=== PATIENT | male | born 1940 | race Caucasian/White ===

== ENCOUNTER 2021-10-10 06:41 | Day surgery (SDC) | payer OTHER, BC ==
[2021-10-03 11:19] VITALS: BMI 31.0
[~2021-10-10 06:41] MED LIST: CEFAZOLIN 2 GM in DEXTROSE 5%-WATER - 50 ML IVPB ONE; CELECOXIB 200 MG CAPSULE PO ONE; TRANEXAMIC ACID 1000 MG/10 ML VIAL IVPUSH ONE
[2021-10-10] MEDS ORDERED: ceFAZolin SODIUM 1 GM VIAL ONE ×3 (07:03→17:21)
[2021-10-10] MEDS ORDERED: THROMBIN (BOVINE) 5,000 UNIT VIAL TP ONE (07:04)
[2021-10-10] MEDS ORDERED: PROPOFOL 20 ML ONE ×2 (07:23)
[2021-10-10] MEDS ORDERED: MIDAZOLAM HCL 2 MG/2 ML SINGLE DOSE VIAL ONE ×4 (07:23→09:58)
[2021-10-10] MEDS ORDERED: KETOROLAC TROMETHAMINE 60 MG/2 ML VIAL ONE (08:28)
[2021-10-10] MEDS ORDERED: BUPIVACAINE HCL/PF 2.5 MG/ML - 30 ML VIAL IJ ONE (08:28)
[2021-10-10] MEDS ORDERED: BUPIVACAINE HCL/PF 0.25% (2.5MG/ML) 10 ML VIAL ONE (08:28)
[2021-10-10] MEDS ORDERED: BUPIVACAINE HCL/PF 0.5% (5 MG/ML) 30 ML VIAL IJ ONE (08:53)
[2021-10-10] MEDS ORDERED: BUPIVACAINE LIPOSOME/PF (EXPAREL) 266 MG/20 ML VIAL ONE (08:53)
[2021-10-10] MEDS ORDERED: BUPIVACAINE HCL 50 ML ONE (09:16)
[2021-10-10] MEDS ORDERED: ONDANSETRON 4 MG/2 ML VIAL IVPUSH PRN ×2 (09:58→10:28)
[2021-10-10] MEDS ORDERED: LACTATED RINGERS SOLUTION 1,000 ML IV SCH ×2 (10:00→10:30)
[2021-10-10] MEDS ORDERED: PATIENT'S OWN MEDICATION (NON-FORMULARY) (Lisinopril [Zestril] 2.5 MG Tablet) PO SCH (10:00)
[2021-10-10] MEDS ORDERED: oxyCODONE HCL 5 MG TABLET PO PRN ×2 (10:28)
[2021-10-10] MEDS ORDERED: ACETAMINOPHEN 1000 MG/100 ML BAG IVPB ONE (10:28)
[2021-10-10] MEDS ORDERED: ePHEDrine SULFATE 50 MG/1 ML AMPULE ONE (10:32)
[2021-10-10] MEDS: KETOROLAC TROMETHAMINE 30 MG/1 ML VIAL IVPUSH SCH ×2 (11:50→16:48)
[2021-10-10] MEDS ORDERED: DEXTROSE 5%-WATER - 50 ML IVPB ONE (17:21)
[2021-10-10] MEDS: CEFAZOLIN 2 GM in DEXTROSE 5%-WATER - 50 ML IVPB SCH (17:27)
[2021-10-10] MEDS: ACETAMINOPHEN 500 MG TABLET (FP) PO SCH ×2 (17:28→23:46)
[2021-10-10] MEDS: PANTOPRAZOLE 40 MG TABLET PO SCH (21:10)
[2021-10-10] MEDS: MULTIVITAMINS (DAILY MVI) TABLET (FP) PO SCH (21:10)
[2021-10-10] MEDS: SENNOSIDES/DOCUSATE COMBO (SENNA PLUS) TABLET (UD) PO SCH (21:12)
[2021-10-10] MEDS: oxyCODONE HCL 10 MG SUSTAINED ACTING TABLET PO SCH (21:13)
[2021-10-10] MEDS ORDERED: ROSUVASTATIN CA 10 MG TABLET PO SCH (22:00)
[2021-10-11] MEDS ORDERED: ceFAZolin SODIUM 1 GM VIAL ONE (01:39)
[2021-10-11] MEDS ORDERED: DEXTROSE 5%-WATER - 50 ML IVPB ONE (01:39)
[2021-10-11] MEDS: CEFAZOLIN 2 GM in DEXTROSE 5%-WATER - 50 ML IVPB SCH (01:44)
[2021-10-11] MEDS: ACETAMINOPHEN 500 MG TABLET (FP) PO SCH ×2 (06:21→11:18)
[2021-10-11] MEDS ORDERED: ASPIRIN 325 MG TABLET PO SCH (08:00)
[2021-10-11] MEDS: SENNOSIDES/DOCUSATE COMBO (SENNA PLUS) TABLET (UD) PO SCH (09:06)
[2021-10-11] MEDS: PANTOPRAZOLE 40 MG TABLET PO SCH (09:07)
[2021-10-11] MEDS: oxyCODONE HCL 10 MG SUSTAINED ACTING TABLET PO SCH (09:07)
[2021-10-11] MEDS: MULTIVITAMINS (DAILY MVI) TABLET (FP) PO SCH (09:07)
[2021-10-11] MEDS ORDERED: amLODIPine BESYLATE 2.5 MG TABLET (FP) PO SCH (10:00)
[2021-10-11] MEDS ORDERED: LISINOPRIL 5 MG TABLET PO SCH (10:00)
[2021-10-11] MEDS ORDERED: METOPROLOL TARTRATE 25 MG TABLET (FP) PO SCH (10:00)
[2021-10-11 11:03] VITALS: BP 124/63; PULSE 70; TEMP 98.3
== END 2021-10-11 12:58 | disposition home or self-care (01) ==
LOC: FASUSAT 06:41 → FM/S 13:39 → FASUSAT 10-11 12:58
PROVIDERS: ATTEND Orthopaedic Surgery
PROC: 8E0YXBZ Computer Assisted Procedure of Lower Extremity (ICD-10-PCS; 2021-10-10)
PROC: 8E0Y0CZ Robotic Assisted Procedure of Lower Extremity, Open Approach (ICD-10-PCS; 2021-10-10)
PROC: 0SRD0M9 Replacement of Left Knee Joint with Lateral Unicondylar Synthetic Substitute, Cemented, Open Approach (ICD-10-PCS; principal; 2021-10-10 10:07)
DX: M17.12 Unilateral primary osteoarthritis, left knee (principal)
CPT/HCPCS: 20985; 27446; C1776; S2900; 73560-TC-LT-FY; 94760; 97010-GP; 97116-GP; 97161-GP

== ENCOUNTER 2022-01-02 06:03 | Day surgery (SDC) | payer OTHER, BC ==
[2022-01-02] MEDS ORDERED: BUPIVICAINE 0.25%/MORPH PF/KETOROLAC - 51ML DISP.SYRINGE IA ONE ×2 (06:25→08:22)
[2022-01-02] MEDS ORDERED: TRANEXAMIC ACID 1000 MG/10 ML VIAL IVPUSH ONE (06:25)
[2022-01-02] MEDS ORDERED: CEFAZOLIN 2 GM in DEXTROSE 5%-WATER - 50 ML IVPB ONE (06:25)
[2022-01-02] MEDS ORDERED: ONDANSETRON 4 MG/2 ML VIAL IVPUSH PRN (06:34)
[2022-01-02] MEDS ORDERED: CELECOXIB 200 MG CAPSULE ONE (06:37)
[2022-01-02 06:40] VITALS: BMI 28.0
[2022-01-02] MEDS: CELECOXIB 200 MG CAPSULE PO ONE (06:40)
[2022-01-02] MEDS ORDERED: ceFAZolin SODIUM 1 GM VIAL ONE ×2 (06:45→08:22)
[2022-01-02] MEDS ORDERED: LACTATED RINGERS SOLUTION 1,000 ML IV SCH ×2 (06:45→09:30)
[2022-01-02] MEDS ORDERED: THROMBIN (BOVINE) 5,000 UNIT VIAL TP ONE (06:45)
[2022-01-02] MEDS ORDERED: BUPIVACAINE HCL 50 ML ONE (06:51)
[2022-01-02] MEDS ORDERED: PROPOFOL 60 ML ONE (06:54)
[2022-01-02] MEDS ORDERED: MIDAZOLAM HCL 2 MG/2 ML SINGLE DOSE VIAL ONE (06:54)
[2022-01-02] MEDS ORDERED: DEXAMETHASONE SOD PHOSPHATE 10 MG/1 ML VIAL ONE (07:02)
[2022-01-02] MEDS ORDERED: BUPIVACAINE HCL/PF 0.5% (5 MG/ML) 30 ML VIAL IJ ONE (07:02)
[2022-01-02] MEDS ORDERED: BUPIVACAINE HCL/PF 2.5 MG/ML - 30 ML VIAL IJ ONE (07:16)
[2022-01-02] MEDS ORDERED: KETOROLAC TROMETHAMINE 60 MG/2 ML VIAL ONE (07:17)
[2022-01-02] MEDS ORDERED: ePHEDrine SULFATE 50 MG/1 ML AMPULE ONE (08:01)
[2022-01-02] MEDS ORDERED: ONDANSETRON 4 MG/2 ML VIAL ONE (08:22)
[2022-01-02] MEDS ORDERED: TRANEXAMIC ACID 1000 MG/10 ML VIAL ONE (08:22)
[2022-01-02] MEDS ORDERED: DEXAMETHASONE SOD PHOSPHATE 4 MG/1 ML VIAL ONE (08:22)
[2022-01-02] MEDS ORDERED: KETOROLAC TROMETHAMINE 30 MG/1 ML VIAL ONE (08:22)
[2022-01-02] MEDS ORDERED: ACETAMINOPHEN 1000 MG/100 ML BAG IVPB ONE (09:22)
[2022-01-02] MEDS ORDERED: oxyCODONE HCL 5 MG TABLET PO PRN ×2 (09:22)
[2022-01-02] MEDS ORDERED: ACETAMINOPHEN INJECTION 100 ML IVPB ONE (09:33)
[2022-01-02] MEDS ORDERED: METOPROLOL TARTRATE 25 MG TABLET (FP) PO SCH (10:00)
[2022-01-02] MEDS: LISINOPRIL 5 MG TABLET PO SCH (11:05)
[2022-01-02] MEDS: SENNOSIDES/DOCUSATE COMBO (SENNA PLUS) TABLET (UD) PO SCH ×2 (11:05→21:43)
[2022-01-02] MEDS: ROSUVASTATIN CA 10 MG TABLET PO SCH (11:05)
[2022-01-02] MEDS: amLODIPine BESYLATE 2.5 MG TABLET (FP) PO SCH (11:06)
[2022-01-02] MEDS: oxyCODONE HCL 10 MG SUSTAINED ACTING TABLET PO SCH ×2 (11:06→22:04)
[2022-01-02] MEDS: PANTOPRAZOLE 40 MG TABLET PO SCH (11:06)
[2022-01-02] MEDS: MULTIVITAMINS (DAILY MVI) TABLET (FP) PO SCH (11:07)
[2022-01-02] MEDS: ACETAMINOPHEN 500 MG TABLET (FP) PO SCH ×2 (15:04→21:44)
[2022-01-02] MEDS: CEFAZOLIN 2 GM in DEXTROSE 5%-WATER 100 ML IVPB SCH ×2 (15:04→23:42)
[2022-01-02] MEDS: KETOROLAC TROMETHAMINE 30 MG/1 ML VIAL IVPUSH SCH ×2 (16:52→17:02)
[2022-01-03] MEDS: ACETAMINOPHEN 500 MG TABLET (FP) PO SCH ×2 (03:30→09:04)
[2022-01-03] MEDS: CELECOXIB 200 MG CAPSULE PO ONE (05:59)
[2022-01-03] MEDS: METOPROLOL TARTRATE 25 MG TABLET (FP) PO SCH ×2 (05:59→09:05)
[2022-01-03] MEDS: KETOROLAC TROMETHAMINE 30 MG/1 ML VIAL IVPUSH SCH (06:01)
[2022-01-03 06:35] VITALS: TEMP 97.9
[2022-01-03] MEDS ORDERED: ASPIRIN 325 MG TABLET PO SCH (08:00)
[2022-01-03] MEDS: ROSUVASTATIN CA 10 MG TABLET PO SCH (09:05)
[2022-01-03] MEDS: amLODIPine BESYLATE 2.5 MG TABLET (FP) PO SCH (09:05)
[2022-01-03] MEDS: MULTIVITAMINS (DAILY MVI) TABLET (FP) PO SCH (09:05)
[2022-01-03] MEDS: SENNOSIDES/DOCUSATE COMBO (SENNA PLUS) TABLET (UD) PO SCH (09:06)
[2022-01-03] MEDS: oxyCODONE HCL 10 MG SUSTAINED ACTING TABLET PO SCH (09:06)
[2022-01-03] MEDS: PANTOPRAZOLE 40 MG TABLET PO SCH (09:07)
[2022-01-03] MEDS: LISINOPRIL 5 MG TABLET PO SCH (09:07)
[2022-01-03 09:55] VITALS: BP 114/65; PULSE 62; RESP 16
== END 2022-01-03 12:35 | disposition home health service (06) ==
LOC: FASUSAT 06:03 → FM/S 10:21 → FASUSAT 01-03 12:35
PROVIDERS: ATTEND Orthopaedic Surgery
PROC: 8E0YXBZ Computer Assisted Procedure of Lower Extremity (ICD-10-PCS; 2022-01-02)
PROC: 8E0Y0CZ Robotic Assisted Procedure of Lower Extremity, Open Approach (ICD-10-PCS; 2022-01-02)
PROC: 0SRC0L9 Replacement of Right Knee Joint with Medial Unicondylar Synthetic Substitute, Cemented, Open Approach (ICD-10-PCS; principal; 2022-01-02 07:53)
DX: M17.11 Unilateral primary osteoarthritis, right knee (principal)
CPT/HCPCS: 20985; 27446; C1776; S2900; 73560-TC-RT-FY; 94760; 97010-GP; 97116-GP; 97161-GP; J1100